=== PATIENT | female | born 1935 | race Caucasian/White ===

== ENCOUNTER 2016-05-16 21:07 | Inpatient (IN) | payer MEDICARE, MEDICAID ==
[~2016-05-16] VITALS: Ht 152.4 cm; Wt 52.6 kg
[~2016-05-16 21:07] MED LIST: AMLO1CAP8 PO; ATOR10TA PO; AZIT250T6 PO; CARB200T PO; CEPH-264 PO; CETI10TA22 PO; ESTR0.62 PO; FEBU40TA PO; FLUT1DIS3 IH; FURO-68 PO; FURO80TA72 PO; HYDR-2672 PO; HYDR-963 PO; HYDR25TA9 PO; LEVO88TA2 PO; LISI-334 PO; POTA20LI PO; PRED50TA PO; PROAIR HFA8.5 GM IH; SERT25TA4 PO; ZOLP10TA4 PO
[2016-05-16] MEDS ORDERED: IV NORMAL SALINE 500ML BAG 500 ML IV ONE (22:30)
[2016-05-16 22:48] LABS: BILIRUBIN,URINE NEGATIVE (NEG); GLUCOSE,URINE NEGATIVE (NEG); NITRITE,URINE NEGATIVE (NEG); PROTEIN,URINE 100 mg/dL (NEG-TRACE); UROBILINOGEN,URINE 0.2 mg/dL (0.2 mg/dL)
[2016-05-16 22:50] LABS: BASO % 0 % (0-3); EOS % 0 % (0-3); HEMATOCRIT 25.4 % (36.0-47.0); HEMOGLOBIN 8.3 g/dL (12.0-15.5); LYMPH # 0.7 x10^3/uL (1.0-4.8); LYMPH % 5 % (24-48); MEAN CORPUSCULAR HEMOGLOBIN 31 pg (25-35); MEAN CORPUSCULAR HGB CONC 33 g/dL (31-37); MEAN CORPUSCULAR VOLUME 93 fL (79-100); MONO % 2 % (0-9); NEUT % 93 % (31-73); PLATELET COUNT 220 x10^3/uL (140-400); RED BLOOD COUNT 2.72 x10^6/uL (3.50-5.40); RED CELL DISTRIBUTION WIDTH 17.2 % (11.5-14.5); WHITE BLOOD COUNT 14.1 x10^3/uL (4.0-11.0)
[2016-05-16 22:59] LABS: INR 1.1 (0.8-1.1); PROTHROMBIN TIME PATIENT 13.3 SEC (11.7-14.0)
[2016-05-16 23:00] LABS: BACTERIA,URINE 0 /HPF (0-FEW); SQUAMOUS EPITHELIAL CELL,UR FEW /LPF; WBC,URINE 20-40 /HPF (0-4)
[2016-05-16 23:08] LABS: CREATININE 1.7 mg/dL (0.6-1.0); GFR 28.8; POTASSIUM 4.8 mmol/L (3.5-5.1)
[2016-05-16 23:15] LABS: ALBUMIN 3.6 g/dL (3.4-5.0); ALBUMIN/GLOBULIN RATIO 1.2 (1.0-1.7); TOTAL BILIRUBIN 0.5 mg/dL (0.2-1.0); TOTAL PROTEIN 6.7 g/dL (6.4-8.2)
--- NOTE | 2016-05-16 23:17 | PHYS DOC ---
Past Medical History Past Medical History: Dementia, Hypertension, Other Additional Past Medical Histor: irr heartbeat, colon CA Past Surgical History: Cholecystectomy, Tonsillectomy, Other Additional Past Surgical Histo: colon resection Alcohol Use: None Drug Use: None Adult General Chief Complaint Chief Complaint: MECHANICAL FALL HPI HPI 80-year-old female who lives at home with her who is the power of deputy prosecuting attorney presents after she fell early this morning and was in the floor for at least a couple of hours. Her home nurse came over and got her into bed. EMS came around noon and she refused transport. The patient's nephew came over later in the day to visit her and noticed that the bruising on her head and right cheek was much worse and she was complaining of a lot of left hip pain. The nephew states she's been progressively weak over the last several weeks and in fact has fallen once previously. Patient denies any loss of consciousness however history is difficult secondary to dementia [] Review of Systems Review of Systems Review of systems is unobtainable secondary to dementia Current Medications Current Medications Current Medications Medications (Trade) Dose Ordered Sig/Romario Start Time Stop Time Status Last Admin Dose Admin Acetaminophen (Tylenol) 650 mg PRN Q4HRS PRN 05/16/16 23:45 05/17/16 23:44 Ceftriaxone Sodium (Rocephin 1gm Ivpb For Omni) 50 ml @ 100 mls/hr 1X ONCE 05/16/16 23:30 05/16/16 23:59 Fentanyl Citrate 25 mcg 25 mcg PRN Q2HR PRN 05/16/16 23:45 05/17/16 23:44 Ondansetron HCl (Zofran) 4 mg PRN Q8HRS PRN 05/16/16 23:45 05/17/16 23:44 Sodium Chloride (Iv Sodium Chloride 0.9% 1000ml Bag) 1,000 ml @ 100 mls/hr Q10H 05/16/16 23:45 05/17/16 23:44 Allergies Allergies Allergies Coded Allergies Type Severity Reaction Last Updated Verified No Known Drug Allergies 06/22/14 No Physical Exam Physical Exam Constitutional: Well developed, well nourished, no acute distress, non-toxic appearance. [] HENT: Normocephalic, atraumatic, bilateral external ears normal, oropharynx moist, no oral exudates, nose normal. [] Eyes: PERRLA, EOMI, conjunctiva normal, no discharge. [] Neck: Normal range of motion, no tenderness, supple, no stridor. [] Cardiovascular:Heart rate regular rhythm, no murmur [] Lungs & Thorax: Bilateral breath sounds clear to auscultation [] Abdomen: Bowel sounds normal, soft, no tenderness, no masses, no pulsatile masses. [] Skin: Warm, dry, no erythema, no rash. [] Back: No tenderness, no CVA tenderness. [] Extremities: No tenderness, no cyanosis, no clubbing, ROM intact, no edema. [] Neurologic: Alert and oriented X 3, normal motor function, normal sensory function, no focal deficits noted. [] Psychologic: Affect normal, judgement normal, mood normal. [] Current Patient Data Vital Signs Vital Signs Date Time Temp Pulse Resp B/P Pulse Ox O2 Delivery O2 Flow Rate FiO2 05/16/16 21:35 98.7 69 16 165/72 95 Room Air 98.7 Lab Values Laboratory Tests Test 05/16/16 21:24 05/16/16 22:43 Urine Collection Type U cath Urine Color Yellow Urine Clarity Clear Urine pH 7.0 Urine Specific Waucoma 1.015 Urine Protein 100mg/dL (NEG-TRACE) Urine Glucose (UA) Negativemg/dL (NEG) Urine Ketones (Stick) Negativemg/dL (NEG) Urine Blood Moderate (NEG) Urine Nitrite Negative (NEG) Urine Bilirubin Negative (NEG) Urine Urobilinogen Dipstick 0.2mg/dL (0.2 mg/dL) Urine Leukocyte Esterase Trace (NEG) Urine RBC 11-20/HPF (0-2) Urine WBC 20-40/HPF (0-4) Urine Squamous Epithelial Cells Few/LPF Urine Bacteria 0/HPF (0-FEW) Urine Hyaline Casts Moderate/HPF Urine Mucus Mod/LPF White Blood Count 14.1x10^3/uL (4.0-11.0) H Red Blood Count 2.72x10^6/uL (3.50-5.40) L Hemoglobin 8.3g/dL (12.0-15.5) L Hematocrit 25.4% (36.0-47.0) L Mean Corpuscular Volume 93fL (79-100) Mean Corpuscular Hemoglobin 31pg (25-35) Mean Corpuscular Hemoglobin Concent 33g/dL (31-37) Red Cell Distribution Width 17.2% (11.5-14.5) H Platelet Count 220x10^3/uL (140-400) Neutrophils (%) (Auto) 93% (31-73) H Lymphocytes (%) (Auto) 5% (24-48) L Monocytes (%) (Auto) 2% (0-9) Eosinophils (%) (Auto) 0% (0-3) Basophils (%) (Auto) 0% (0-3) Neutrophils # (Auto) 13.0x10^3uL (1.8-7.7) H Lymphocytes # (Auto) 0.7x10^3/uL (1.0-4.8) L Monocytes # (Auto) 0.3x10^3/uL (0.0-1.1) Eosinophils # (Auto) 0.0x10^3/uL (0.0-0.7) Basophils # (Auto) 0.0x10^3/uL (0.0-0.2) Platelet Estimate Pending Prothrombin Time 13.3SEC (11.7-14.0) Prothrombin Time INR 1.1 (0.8-1.1) Sodium Level 133mmol/L (136-145) L Potassium Level 4.8mmol/L (3.5-5.1) Chloride Level 100mmol/L (98-107) Carbon Dioxide Level 26mmol/L (21-32) Anion Gap 7 (6-14) Blood Urea Nitrogen 30mg/dL (7-20) H Creatinine 1.7mg/dL (0.6-1.0) H Estimated GFR (Cockcroft-Gault) 28.8 BUN/Creatinine Ratio 18 (6-20) Glucose Level 81mg/dL (70-99) Calcium Level 9.0mg/dL (8.5-10.1) Total Bilirubin 0.5mg/dL (0.2-1.0) Aspartate Amino Transferase (AST) 49U/L (15-37) H Alanine Aminotransferase (ALT) 25U/L (14-59) Alkaline Phosphatase 77U/L (46-116) Creatine Kinase 974U/L (26-192) H Myoglobin 957ng/mL (9-82) H Troponin I Quantitative < 0.017ng/mL (0.000-0.055) Total Protein 6.7g/dL (6.4-8.2) Albumin 3.6g/dL (3.4-5.0) Albumin/Globulin Ratio 1.2 (1.0-1.7) Laboratory Tests 05/16/16 22:43 Laboratory Tests 05/16/16 22:43 EKG EKG [] Radiology/Procedures Radiology/Procedures []PROCEDURE: HEAD AND MAXILLOFACIAL WO CT brain and maxillofacial Indication: Fall with head pain and injury. Axial imaging through the brain and facial bones was performed without contrast. Sagittal and coronal reformations were also performed. PQRS STATEMENT One or more of the following individualized dose reduction techniques were utilized for this study: 1.Automated exposure control. 2.Adjustment of the mA and/orkVaccording to patient size. 3.Use of iterative reconstruction technique. CT brain: The ventricles and sulci are appropriate for the patient's age. No sulcal effacement, midline shift or hemorrhage is detected. The cisterns are patent. Impression: No acute intracranial process is detected. CT maxillofacial: The mandible appears intact. The zygomatic arches are intact. The maxillary sinus culp, nasal bones and orbital culp appear intact. The paranasal sinuses are clear. Impression: No facial bone fracture is detected. Impressions: Hip x-ray: Pelvic fracture Course & Med Decision Making Course & Med Decision Making Pertinent Labs and Imaging studies reviewed. (See chart for details) [ED course: Evaluation reveals a elderly 80-year-old female who appears acutely ill. It was noted that she had a urinary tract infection as well as having an elevated CPK and elevated creatinine. Patient was given IV fluids to help with rhabdomyolysis. She was also treated for her urinary tract infection with IV Rocephin. It was noted on her x-ray that she has a pelvic fracture likely from her recent fall. I spoke with Dr. Medellin who agreed to admit the patient to the hospital. We will consult orthopedic surgery. CRITICAL CARE time was 30 minutes - time exclusive of any procedures performed. Care included medical management, x-ray/lab interpretation, discussions with the patient and their family as well as appropriate medical consultants.] Dragon Disclaimer Dragon Disclaimer This electronic medical record was generated, in whole or in part, using a voice recognition dictation system. Departure Departure Impression: Primary Impression: Rhabdomyolysis Additional Impressions: Fall Pelvic fracture Urinary tract infection Referrals: RAVEN SINGH MD (PCP) Problem Qualifiers Primary Impression: Rhabdomyolysis Rhabdomyolysis type: traumatic Encounter type: initial encounter Qualified Code: T79.6XXA - Traumatic ischemia of muscle, initial encounter Additional Impressions: Fall Encounter type: initial encounter Qualified Code: W19.XXXA - Unspecified fall, initial encounter Pelvic fracture Encounter type: initial encounter Pelvic bone location: pubis Sublocation of pubis: unspecified portion of pubis Fracture type: closed Laterality: left Qualified Code: S32.502A - Unspecified fracture of left pubis, initial encounter for closed fracture Urinary tract infection Urinary tract infection type: site unspecified Hematuria presence: without hematuria Qualified Code: N39.0 - Urinary tract infection, site not specified KAREY DUGAN DO May 16, 2016 23:17
[2016-05-16] MEDS ORDERED: CEFTRIAXONE 1GM IVPB FOR OMNI 50 ML IV ONE (23:30)
[2016-05-16] MEDS ORDERED: FENTANYL PF 100 MCG/2 ML VIAL. IV PRN (23:45)
[2016-05-16] MEDS ORDERED: ACETAMINOPHEN 325 MG TABLET. PO PRN (23:45)
[2016-05-16] MEDS ORDERED: ONDANSETRON PF 4 MG/2 ML VIAL. IV PRN (23:45)
--- NOTE | 2016-05-16 23:51 | RAD ---
CT brain and maxillofacial Indication: Fall with head pain and injury. Axial imaging through the brain and facial bones was performed without contrast. Sagittal and coronal reformations were also performed. PQRS STATEMENT One or more of the following individualized dose reduction techniques were utilized for this study: 1.Automated exposure control. 2.Adjustment of the mA and/orkVaccording to patient size. 3.Use of iterative reconstruction technique. CT brain: The ventricles and sulci are appropriate for the patient's age. No sulcal effacement, midline shift or hemorrhage is detected. The cisterns are patent. Impression: No acute intracranial process is detected. CT maxillofacial: The mandible appears intact. The zygomatic arches are intact. The maxillary sinus culp, nasal bones and orbital culp appear intact. The paranasal sinuses are clear. Impression: No facial bone fracture is detected. Electronically signed by: Jon Hanks MD (May 16, 2016 23:49:14)
[2016-05-17] VITALS (7 sets, daily range): BP systolic 128–151; BP diastolic 47–59
[2016-05-17] MEDS ORDERED: IV NORMAL SALINE 1000ML BAG 1,000 ML IV ONE
--- NOTE | 2016-05-17 00:49 | ACF ---
Admission Forms Criteria MUSCULOSKELETAL DISEASE GRG Clinical Indications for Admission to Inpatient Care (Place 'X' for any and all applicable criteria): Hospital admission is needed for appropriate care of the patient because of ANY ONE of the following: [ ]I. Fracture, dislocation, or other musculoskeletal injury requiring inpatient care(medical) as indicated by ANY ONE of the following(4)(5)(6)(7) [ ]a) Vertebral fracture requiring observation for instability or neurologic compromise (8) [ ]b) Compartment syndrome (proven or cannot be ruled out during observation level of care) (9) [ ]c) Limb-threatening injury [ ]d) Major injury requiring inpatient stabilization such as traction initiation or external fixation before internal fixation or closure of complex or open fracture [ ]e) Major injury requiring inpatient treatment after emergency or observation level care (as appropriate) [ ]f) Severe pain requiring acute inpatient management [ ]II. Newly diagnosed or suspected bone, joint, or orthopedic device infection (e.g., osteomyelitis, septic arthritis) needing ANY ONE of the following(1)(2)(3) [ ]a) IV antibiotics that cannot be initiated in other than inpatient setting (e.g., patient too unstable or home infusion not available) [ ]b) Device removal or replacement [ ]c) Bone or soft tissue debridement [ ]d) Joint drainage (drain placement or repetitive aspirations) [ ]III. Severe rheumatologic disease (e.g., systemic lupus erythematosus, rheumatoid arthritis) with complications or comorbidities (Also use Optimal Recovery Care Criteria or General Recovery Criteria as appropriate on the basis of predominant condition), including ANY ONE of the following(10 )(11)(12)(13) [ ]a) Severe infection (e.g., OFFICE CHAIR ASSEMBLER infection, sepsis) (14) [ ]b) Respiratory complications, including ANY ONE of the following: [ ]i) Pleural effusion with respiratory compromise [ ]ii) Pulmonary hypertension with congestive failure [ ]iii) Respiratory failure [ ]iv) Pulmonary hemorrhage (15) [ ]c) Hematologic disease, including ANY ONE of the following: [ ]i) Coagulopathy with bleeding [ ]ii) Thrombosis with hypercoagulable state [ ]iii) Thrombotic thrombocytopenic purpura [ ]d) Cerebritis with seizures, psychosis, or other severe abnormalities [ ]e) Vertebral destruction with monitoring needed for cervical myelopathy& possible respiratory compromise [ ]f) Exacerbation that requires inpatient treatment (e.g., intravenous immunosuppression) (16) [ ]g) Acute renal failure [ ]IV. Severe vasculitis with complications or comorbidities (Also use Optimal Recovery Care Criteria or General Recovery Criteria as appropriate on the basis of predominant condition), including ANY ONE of the following(11)(12)(17)(18)(19)(20) [ ]a) OFFICE CHAIR ASSEMBLER vasculitis with seizures, psychosis, or other severe abnormalities (22) [ ]b) Renal failure (16) [ ]c) Pulmonary hemorrhage (15) [ ]d) Cerebral infarction [ ]e) Gastrointestinal ischemia [ ]f) Gangrene or threatened amputation [ ]g) Exacerbation that requires inpatient treatment (e.g., intravenous immunosuppression) (19)(21) [ ]V. Severe myopathy as indicated by ANY ONE of the following (28)(29) [ ]a) New onset of airway compromise or inability to swallow [ ]b) Respiratory deterioration with observation needed for impending respiratory failure [ ]c) Exacerbation that requires inpatient treatment (e.g., intravenous immunosuppression) [ ]. Severe gout (crystal arthropathy) as indicated by ANY ONE of the following (23)(24) [ ]a) Severe pain requiring acute inpatient management [ ]b) Exacerbation that requires inpatient treatment (e.g., intravenous treatment) [X]VII.Rhabdomyolysis and ANY ONE of the following (25)(26)(27) [X]a) Acute renal failure [ ]b) Need for intravenous hydration after emergency or observation level care (as appropriate) [ ]c) Inability to maintain oral hydration [ ]d) Change in mental status [ ]e) Electrolyte abnormality that remains after emergency or observation level care (as appropriate) [ ]VIII Post amputation complication, as indicated by ANY ONE of the following [ ]a) Infection [ ]b) Dehiscence [ ]c) Myodesis failure [ ]IX. Severe pain requiring acute inpatient management as indicated by ALL of the following (30)(31)(32) [ ]a) Continuous or frequent (e.g., every 2 to 4 hrs) parenteral analgesics required [A] [ ]b) Rapid improvement expected from treatment or acute intervention ( e.g., surgery, anesthesia procedure[B] [ ]X. Musculoskeletal Disease and ALL of the following: [ ]a) Symptom or finding for which emergency and observation care have failed or are not considered appropriate (Use General Criteria: Observation Care as appropriate) [ ]b) Presence of ANY ONE of the following [ ]i) A General Admission Criteria [ ]ii) A Pediatric General Admission Criteria The original [facility] content created by [facility] has been revised. The portions of the content which have been revised are identified through the use of italic text or in bold, and [facility] has neither reviewed nor approved the modified material. All other unmodified content is copyright [facility]. Please see references footnoted in the original [facility] edition 2016 Admission Criteria Met?: Yes CHAVA MACDONALD May 17, 2016 00:49
[2016-05-17] MEDS: IV NORMAL SALINE 1000ML BAG 1,000 ML IV SCH ×3 (01:23→17:27)
[2016-05-17 01:25] LABS: PLT ESTIMATE ADEQUATE (ADEQUATE)
[2016-05-17 01:26] LABS: ANISOCYTOSIS SLIGHT; MICROCYTOSIS SLIGHT; POLYCHROMASIA SLIGHT
[2016-05-17 06:29] LABS: BASO % 0 % (0-3); EOS % 0 % (0-3); HEMATOCRIT 22.4 % (36.0-47.0); HEMOGLOBIN 7.5 g/dL (12.0-15.5); LYMPH # 0.8 x10^3/uL (1.0-4.8); LYMPH % 7 % (24-48); MEAN CORPUSCULAR HEMOGLOBIN 31 pg (25-35); MEAN CORPUSCULAR HGB CONC 33 g/dL (31-37); MEAN CORPUSCULAR VOLUME 92 fL (79-100); MONO % 3 % (0-9); NEUT % 90 % (31-73); PLATELET COUNT 226 x10^3/uL (140-400); RED BLOOD COUNT 2.45 x10^6/uL (3.50-5.40); RED CELL DISTRIBUTION WIDTH 17.4 % (11.5-14.5); WHITE BLOOD COUNT 10.8 x10^3/uL (4.0-11.0)
[2016-05-17 06:39] LABS: ALBUMIN/GLOBULIN RATIO 1.2 (1.0-1.7); CALCIUM 8.2 mg/dL (8.5-10.1); CREATININE 1.4 mg/dL (0.6-1.0); POTASSIUM 4.1 mmol/L (3.5-5.1); TOTAL BILIRUBIN 0.4 mg/dL (0.2-1.0); TOTAL PROTEIN 5.5 g/dL (6.4-8.2)
--- NOTE | 2016-05-17 07:10 | EKG ---
[facility] [address] [place] [address] Test Date: 2016-05-16 Test Time: 23:39:57 Pat Name: BIANCA PRIETO Department: Room: 408 1 Gender: Female Electrolog Operator: : [id number] Requested By: KAREY DUGAN Order Number: [id number] Reading MD: Sydney Simon Measurements Intervals Walker Rate: 72 P: 0 GA: 254 QRS: -36 QRSD: 84 T: 118 QT: 454 QTc: 499 Interpretive Statements PROBABLE ATRIAL PACED RHYTHM PROLONGED AV DELAY ABNORMAL LEFT AXIS DEVIATION QRS(T) CONTOUR ABNORMALITY CONSISTENT WITH ANTEROSEPTAL INFARCT AGE UNDETERMINED T ABNORMALITY IN ANTERIOR LEADS HIGH LATERAL LEADS INFERIOR LEADS Electronically Signed On 05-18-2016 21:06:45 CDT by Sydney Simon
--- NOTE | 2016-05-17 07:33 | RAD ---
Indication: Pain after fall. Technique: 2 views of the left hip with an AP view the pelvis contains 3 images. No comparison is available. Findings: There are fractures that are likely acute involving the left superior and inferior pubic rami. A definite fracture involving the proximal femur is not identified. There is no dislocation. There are vascular calcifications. Impression: Left superior and inferior pubic rami fractures.
[2016-05-17] MEDS ORDERED: CETIRIZINE HCL 10 MG TABLET PO PRN (13:15)
[2016-05-17] MEDS: ESTROGENS, CONJUGATED 0.3 MG TABLET PO SCH (15:30)
[2016-05-17] MEDS: FEBUXOSTAT 40 MG TABLET PO SCH (15:30)
[2016-05-17] MEDS ORDERED: HYDROCODONE/APAP 10/325 TABLET. PO PRN (16:00)
--- NOTE | 2016-05-17 18:57 | PDOC2 ---
CONSULT Date of Consult Date of Consult DATE: 05/17/16 TIME: 18:51 Reason for Consult Reason for Consult: left pelvic fractures Identification/Chief Complaint Chief Complaint left hip/ pelvis pain Source Source: Chart review History of Present Illness Reason for Visit: The patient is an 80 year old female who fell and sustained left superior and inferior pubic rami fractures. There was no family present in the room and the patient was not able to give me a history at all. She does not complain of pain . Says she normally uses a walker to ambulate. She does have pain with log roll of the left hip. Past Medical History Cardiovascular: CHF, HTN, Other CENTRAL NERVOUS SYSTEM: Other GI: Other Heme/Onc: Cancer Endocrine: Osteoporosis Past Surgical History Past Surgical History: Cholecystectomy, Tonsillectomy, Colon Resection, Other Family History Family History: Family History Unknown Social History ALCOHOL: none Drugs: None Lives: Prison Current Problem List Problem List Problems Medical Problems: (1) Fall Status: Acute (2) Pelvic fracture Status: Acute (3) Rhabdomyolysis Status: Acute (4) Urinary tract infection Status: Acute Current Medications Current Medications Current Medications Sodium Chloride 500 ml @ 0 mls/hr 1X ONCE IV Last administered on 05/16/16 22 :30; Start 05/16/16 at 22:30; Stop 05/16/16 at 22:31; Status DC Ceftriaxone Sodium (Rocephin 1gm Ivpb For Omni) 50 ml @ 100 mls/hr 1X ONCE IV Last administered on 05/17/16 01:28; Start 05/16/16 at 23:30; Stop 05/16/16 at 23:59; Status DC Ondansetron HCl (Zofran) 4 mg PRN Q8HRS PRN IV NAUSEA/VOMITING; Start 05/16/16 at 23:45; Stop 05/17/16 at 23:44 Fentanyl Citrate 25 mcg 25 mcg PRN Q2HR PRN IV PAIN Last administered on 01:23; Start 05/16/16 at 23:45; Stop 05/17/16 at 23:44 Sodium Chloride (Iv Sodium Chloride 0.9% 1000ml Bag) 1,000 ml @ 100 mls/hr Q10H IV Last administered on 05/17/16 17:27; Start 05/16/16 at 23:45; Stop at 23:44 Acetaminophen 650 mg 650 mg PRN Q4HRS PRN PO FEVER; Start 05/16/16 at 23:45; Stop 05/17/16 at 23:44 Sodium Chloride (Iv Sodium Chloride 0.9% 1000ml Bag) 1,000 ml @ 1,000 mls/hr 1X ONCE IV Last administered on 05/17/16 00:00; Start 05/17/16 at 00:00; Stop 05/17/16 at 00:59; Status DC Cetirizine HCl (Zyrtec) 10 mg PRN DAILY PRN PO ALLERGIES; Start 05/17/16 at 13: 15 Estrogens Conjugated (Premarin) 0.3 mg DAILY PO Last administered on 05/17/16 15:30; Start 05/17/16 at 14:00 Febuxostat (Uloric) 40 mg DAILY PO Last administered on 05/17/16 15:30; Start 05/17/16 at 14:00 Acetaminophen/ Hydrocodone Bitart 1 tab 1 tab PRN DAILY PRN PO PAIN; Start at 16:00 Ceftriaxone Sodium/Sodium Chloride (Rocephin/Iv Sodium Chloride 0.9% 50ml) 50 ml @ 100 mls/hr Q24H IV ; Start 05/17/16 at 22:00 Active Scripts Active Keflex (Cephalexin) 500 Mg Capsule 1 Cap PO TID Azithromycin Tablet (Azithromycin) 250 Mg Tablet 1 Pkg PO UD Prednisone 50 Mg Tablet 50 Mg PO DAILY Reported Zyrtec (Cetirizine Hcl) 10 Mg Tablet 1 Tab PO PRN DAILY PRN Hydrocodone-Apap 10-325 (Hydrocodone Bit/Acetaminophen) 1 Each Tablet 1 Tab PO PRN DAILY PRN Premarin (Estrogens, Conjugated) 0.625 Mg Tablet 1 Tab PO DAILY Uloric (Febuxostat) 40 Mg Tablet 1 Tab PO DAILY Allergies Allergies: Coded Allergies: No Known Drug Allergies (Unverified , 06/22/14) ROS Review of System unable to obtain due to patient mental status Physical Exam General: Alert, Cooperative, No acute distress HEENT: Atraumatic, EOMI Lungs: Normal air movement MUSCULOSKELETAL: Other (lle pain with log roll. grossly moves toes. says she can feel her foot when touched. 2+ DP pulse. ) Vitals VITALS Vital Signs Date Time Temp Pulse Resp B/P Pulse Ox O2 Delivery O2 Flow Rate FiO2 05/17/16 15:00 98.2 70 14 138/57 97 Nasal Cannula 2.0 98.2 Labs Labs Laboratory Tests Test 05/16/16 21:24 05/16/16 22:43 05/17/16 05:30 Urine Collection Type U cath Urine Color Yellow Urine Clarity Clear Urine pH 7.0 Urine Specific [place] 1.015 Urine Protein 100mg/dL (NEG-TRACE) Urine Glucose (UA) Negativemg/dL (NEG) Urine Ketones (Stick) Negativemg/dL (NEG) Urine Blood Moderate (NEG) Urine Nitrite Negative (NEG) Urine Bilirubin Negative (NEG) Urine Urobilinogen Dipstick 0.2mg/dL (0.2 mg/dL) Urine Leukocyte Esterase Trace (NEG) Urine RBC 11-20/HPF (0-2) Urine WBC 20-40/HPF (0-4) Urine Squamous Epithelial Cells Few/LPF Urine Bacteria 0/HPF (0-FEW) Urine Hyaline Casts Moderate/HPF Urine Mucus Mod/LPF White Blood Count 14.1x10^3/uL (4.0-11.0) 10.8x10^3/uL (4.0-11.0) Red Blood Count 2.72x10^6/uL (3.50-5.40) 2.45x10^6/uL (3.50-5.40) Hemoglobin 8.3g/dL (12.0-15.5) 7.5g/dL (12.0-15.5) Hematocrit 25.4% (36.0-47.0) 22.4% (36.0-47.0) Mean Corpuscular Volume 93fL (79-100) 92fL (79-100) Mean Corpuscular Hemoglobin 31pg (25-35) 31pg (25-35) Mean Corpuscular Hemoglobin Concent 33g/dL (31-37) 33g/dL (31-37) Red Cell Distribution Width 17.2% (11.5-14.5) 17.4% (11.5-14.5) Platelet Count 220x10^3/uL (140-400) 226x10^3/uL (140-400) Neutrophils (%) (Auto) 93% (31-73) 90% (31-73) Lymphocytes (%) (Auto) 5% (24-48) 7% (24-48) Monocytes (%) (Auto) 2% (0-9) 3% (0-9) Eosinophils (%) (Auto) 0% (0-3) 0% (0-3) Basophils (%) (Auto) 0% (0-3) 0% (0-3) Neutrophils # (Auto) 13.0x10^3uL (1.8-7.7) 9.7x10^3uL (1.8-7.7) Lymphocytes # (Auto) 0.7x10^3/uL (1.0-4.8) 0.8x10^3/uL (1.0-4.8) Monocytes # (Auto) 0.3x10^3/uL (0.0-1.1) 0.3x10^3/uL (0.0-1.1) Eosinophils # (Auto) 0.0x10^3/uL (0.0-0.7) 0.0x10^3/uL (0.0-0.7) Basophils # (Auto) 0.0x10^3/uL (0.0-0.2) 0.0x10^3/uL (0.0-0.2) Segmented Neutrophils % 88% (35-66) Band Neutrophils % 6% (0-9) Lymphocytes % 3% (24-48) Monocytes % 3% (0-10) Platelet Estimate Adequate (ADEQUATE) Giant Platelets Occ Polychromasia Slight Anisocytosis Slight Microcytosis Slight Prothrombin Time 13.3SEC (11.7-14.0) Prothromb Time International Ratio 1.1 (0.8-1.1) Sodium Level 133mmol/L (136-145) 138mmol/L (136-145) Potassium Level 4.8mmol/L (3.5-5.1) 4.1mmol/L (3.5-5.1) Chloride Level 100mmol/L (98-107) 103mmol/L (98-107) Carbon Dioxide Level 26mmol/L (21-32) 22mmol/L (21-32) Anion Gap 7 (6-14) 13 (6-14) Blood Urea Nitrogen 30mg/dL (7-20) 28mg/dL (7-20) Creatinine 1.7mg/dL (0.6-1.0) 1.4mg/dL (0.6-1.0) Estimated GFR (Cockcroft-Gault) 28.8 36.0 BUN/Creatinine Ratio 18 (6-20) 20 (6-20) Glucose Level 81mg/dL (70-99) 61mg/dL (70-99) Calcium Level 9.0mg/dL (8.5-10.1) 8.2mg/dL (8.5-10.1) Total Bilirubin 0.5mg/dL (0.2-1.0) 0.4mg/dL (0.2-1.0) Aspartate Amino Transf (AST/SGOT) 49U/L (15-37) 45U/L (15-37) Alanine Aminotransferase (ALT/SGPT) 25U/L (14-59) 21U/L (14-59) Alkaline Phosphatase 77U/L (46-116) 70U/L (46-116) Creatine Kinase 974U/L (26-192) Myoglobin 957ng/mL (9-82) Troponin I Quantitative < 0.017ng/mL (0.000-0.055) Total Protein 6.7g/dL (6.4-8.2) 5.5g/dL (6.4-8.2) Albumin 3.6g/dL (3.4-5.0) 3.0g/dL (3.4-5.0) Albumin/Globulin Ratio 1.2 (1.0-1.7) 1.2 (1.0-1.7) Laboratory Tests Test 05/16/16 21:24 05/16/16 22:43 05/17/16 05:30 Urine Collection Type U cath Urine Color Yellow Urine Clarity Clear Urine pH 7.0 Urine Specific [place] 1.015 Urine Protein 100mg/dL (NEG-TRACE) Urine Glucose (UA) Negativemg/dL (NEG) Urine Ketones (Stick) Negativemg/dL (NEG) Urine Blood Moderate (NEG) Urine Nitrite Negative (NEG) Urine Bilirubin Negative (NEG) Urine Urobilinogen Dipstick 0.2mg/dL (0.2 mg/dL) Urine Leukocyte Esterase Trace (NEG) Urine RBC 11-20/HPF (0-2) Urine WBC 20-40/HPF (0-4) Urine Squamous Epithelial Cells Few/LPF Urine Bacteria 0/HPF (0-FEW) Urine Hyaline Casts Moderate/HPF Urine Mucus Mod/LPF White Blood Count 14.1x10^3/uL (4.0-11.0) 10.8x10^3/uL (4.0-11.0) Red Blood Count 2.72x10^6/uL (3.50-5.40) 2.45x10^6/uL (3.50-5.40) Hemoglobin 8.3g/dL (12.0-15.5) 7.5g/dL (12.0-15.5) Hematocrit 25.4% (36.0-47.0) 22.4% (36.0-47.0) Mean Corpuscular Volume 93fL (79-100) 92fL (79-100) Mean Corpuscular Hemoglobin 31pg (25-35) 31pg (25-35) Mean Corpuscular Hemoglobin Concent 33g/dL (31-37) 33g/dL (31-37) Red Cell Distribution Width 17.2% (11.5-14.5) 17.4% (11.5-14.5) Platelet Count 220x10^3/uL (140-400) 226x10^3/uL (140-400) Neutrophils (%) (Auto) 93% (31-73) 90% (31-73) Lymphocytes (%) (Auto) 5% (24-48) 7% (24-48) Monocytes (%) (Auto) 2% (0-9) 3% (0-9) Eosinophils (%) (Auto) 0% (0-3) 0% (0-3) Basophils (%) (Auto) 0% (0-3) 0% (0-3) Neutrophils # (Auto) 13.0x10^3uL (1.8-7.7) 9.7x10^3uL (1.8-7.7) Lymphocytes # (Auto) 0.7x10^3/uL (1.0-4.8) 0.8x10^3/uL (1.0-4.8) Monocytes # (Auto) 0.3x10^3/uL (0.0-1.1) 0.3x10^3/uL (0.0-1.1) Eosinophils # (Auto) 0.0x10^3/uL (0.0-0.7) 0.0x10^3/uL (0.0-0.7) Basophils # (Auto) 0.0x10^3/uL (0.0-0.2) 0.0x10^3/uL (0.0-0.2) Segmented Neutrophils % 88% (35-66) Band Neutrophils % 6% (0-9) Lymphocytes % 3% (24-48) Monocytes % 3% (0-10) Platelet Estimate Adequate (ADEQUATE) Giant Platelets Occ Polychromasia Slight Anisocytosis Slight Microcytosis Slight Prothrombin Time 13.3SEC (11.7-14.0) Prothromb Time International Ratio 1.1 (0.8-1.1) Sodium Level 133mmol/L (136-145) 138mmol/L (136-145) Potassium Level 4.8mmol/L (3.5-5.1) 4.1mmol/L (3.5-5.1) Chloride Level 100mmol/L (98-107) 103mmol/L (98-107) Carbon Dioxide Level 26mmol/L (21-32) 22mmol/L (21-32) Anion Gap 7 (6-14) 13 (6-14) Blood Urea Nitrogen 30mg/dL (7-20) 28mg/dL (7-20) Creatinine 1.7mg/dL (0.6-1.0) 1.4mg/dL (0.6-1.0) Estimated GFR (Cockcroft-Gault) 28.8 36.0 BUN/Creatinine Ratio 18 (6-20) 20 (6-20) Glucose Level 81mg/dL (70-99) 61mg/dL (70-99) Calcium Level 9.0mg/dL (8.5-10.1) 8.2mg/dL (8.5-10.1) Total Bilirubin 0.5mg/dL (0.2-1.0) 0.4mg/dL (0.2-1.0) Aspartate Amino Transf (AST/SGOT) 49U/L (15-37) 45U/L (15-37) Alanine Aminotransferase (ALT/SGPT) 25U/L (14-59) 21U/L (14-59) Alkaline Phosphatase 77U/L (46-116) 70U/L (46-116) Creatine Kinase 974U/L (26-192) Myoglobin 957ng/mL (9-82) Troponin I Quantitative < 0.017ng/mL (0.000-0.055) Total Protein 6.7g/dL (6.4-8.2) 5.5g/dL (6.4-8.2) Albumin 3.6g/dL (3.4-5.0) 3.0g/dL (3.4-5.0) Albumin/Globulin Ratio 1.2 (1.0-1.7) 1.2 (1.0-1.7) Images Images Xrays of her pelvis and hip reveal a superior and inferior pubic ramus fracture , no acute hip fracture. Assessment/Plan Assessment/Plan The patient is a 80 year old female s/p fall with left superior and inferior pubic rami fractures. She does not report any left hip pain. Pain with log roll, usually uses a walker to ambulate. Ok to be wbat with PT. will need post mobilization xrays after being up with PT. dvt ppx pain control. I would check her vitamin D level and supplement as necessary. Can follow up in my office in 3 weeks for new xrays. NIDHI HOBBS MD May 17, 2016 18:57
[2016-05-17] MEDS ORDERED: FLUT1DIS3 IH (19:21)
[2016-05-17] MEDS: BUDESONIDE 0.5 MG/2 ML NEBU NEB SCH (20:00)
[2016-05-17] MEDS: ALBUTEROL SULFATE 2.5 MG/3 ML NEBU. NEB SCH (20:00)
[2016-05-18] VITALS (11 sets, daily range): BP systolic 112–139; BP diastolic 40–70
[2016-05-18] MEDS: CEFTRIAXONE SODIUM 1 GM in IV NORMAL SALINE 50ML 50 ML IV SCH ×2 (00:31→21:55)
[2016-05-18 04:38] LABS: BASO % 0 % (0-3); EOS % 1 % (0-3); LYMPH # 0.8 x10^3/uL (1.0-4.8); LYMPH % 8 % (24-48); MEAN CORPUSCULAR HEMOGLOBIN 31 pg (25-35); MEAN CORPUSCULAR HGB CONC 33 g/dL (31-37); MEAN CORPUSCULAR VOLUME 94 fL (79-100); MONO % 3 % (0-9); NEUT % 88 % (31-73); PLATELET COUNT 224 x10^3/uL (140-400); RED CELL DISTRIBUTION WIDTH 17.3 % (11.5-14.5); WHITE BLOOD COUNT 8.9 x10^3/uL (4.0-11.0)
[2016-05-18 04:42] LABS: HEMOGLOBIN 6.5 g/dL (12.0-15.5)
[2016-05-18 04:43] LABS: HEMATOCRIT 19.7 % (36.0-47.0)
[2016-05-18 04:58] LABS: % SAT IRON 22 % (15-34); IRON,SERUM 32 ug/dL (50-170)
[2016-05-18 05:03] LABS: CALCIUM 7.6 mg/dL (8.5-10.1); CREATININE 1.2 mg/dL (0.6-1.0); POTASSIUM 3.3 mmol/L (3.5-5.1)
[2016-05-18] MEDS: ALBUTEROL SULFATE 2.5 MG/3 ML NEBU. NEB SCH ×4 (08:08→19:30)
[2016-05-18] MEDS: BUDESONIDE 0.5 MG/2 ML NEBU NEB SCH ×2 (08:08→19:30)
[2016-05-18] MEDS ORDERED: NON FORMULARY ITEM (Fluticasone/Salmeterol (Advair 250-50 Diskus) 1 PUFF) IH SCH (09:00)
--- NOTE | 2016-05-18 09:31 | HP ---
ADMIT DATE: 05/17/2016 CHIEF COMPLAINT: Hip fracture, status post fall. HISTORY OF PRESENT ILLNESS: The patient is an 80-year-old woman who lives with her at home. She relates that she blacked out earlier this morning and fell to the floor. Apparently, she was down for quite a bit, although she recollects woken up with people around her. Home health nurse came by and got her into bed. EMS was called, but the patient declined to go to the hospital. However, in the afternoon, nephew came by and noted significant bruising in her face as well as complaints of left hip pain and urged the patient to come to the hospital. In the Emergency Room, she was noted to have contusions over her right orthodoxy and maxillary prominence. Pelvic x-rays showed left superior and inferior pubic rami fractures. CT of head and face shows no fractures. PAST MEDICAL HISTORY: Please note this was obtained from the chart as the patient has massive memory deficits. Dementia, hypertension, atrial fibrillation, history of colon cancer, status post resection, status post cholecystectomy and tonsillectomy. FAMILY HISTORY: Unavailable. SOCIAL HISTORY: No toxic habits. Lives with her . ALLERGIES: No known drug allergies. MEDICATIONS: MAR reconciled with home medications. REVIEW OF SYSTEMS: The patient relates that she currently has no pain. She is somewhat uncomfortable, lying in bed. Denies any other problems, although caveat with memory issues and perception. PHYSICAL EXAMINATION: VITAL SIGNS: From today show a blood pressure of 128/53, heart rate of 70, respiratory rate at 14, she is afebrile. GENERAL: This is a well-nourished, frail appearing 80-year-old woman, awake, alert, in no acute distress, significant memory issues short as well as long-term. LUNGS: Clear to auscultation bilaterally. HEART: Regular rate and rhythm. ABDOMEN: Has positive bowel sounds, soft, nontender. EXTREMITIES: Show no edema. SKIN: Warm, soft and dry, bruising noted over the right orthodoxy and below the zygomatic arch as well as on her right lateral hip. IMAGING: Pelvis x-rays with left superior and inferior pubic rami fractures. CT of the head and facial bones without any fractures noted. ASSESSMENT AND PLAN: The patient is an 80-year-old woman with dementia, who presented with a fall of unknown etiology, possibly a mechanical, although contrary to her story to the ER, she is now convinced that she blacked out. In the Emergency Room, she had been found with UTI, which may have caused weakness and led to the fall. She will be treated for this. Orthopedic Surgery has been consulted. No surgical intervention indicated at this time. Her CK was found to be elevated, possibly secondary to rhabdomyolysis or muscle injury from fall. I will monitor. Creatinine likewise slightly elevated indicating some acute possibly on chronic renal insufficiency. We will monitor with careful IV hydration. Although, the patient has hypertension and atrial fibrillation listed on her past medical history, she actually is not on any medications for this. We will have to try and verify home medication list. Prophylaxis will be instituted with heparin. MALIK KEENAN MD DR: TORY/nts JOB#: [id number] / [id number] ROBERTO
[2016-05-18] MEDS: ESTROGENS, CONJUGATED 0.3 MG TABLET PO SCH (11:11)
[2016-05-18] MEDS: FEBUXOSTAT 40 MG TABLET PO SCH (11:11)
[2016-05-18] MEDS: HYDROCODONE/APAP 5/325MG TABLET. PO PRN ×2 (15:14→21:55)
--- NOTE | 2016-05-18 16:53 | PDOC ---
PROGRESS NOTES Chief Complaint Chief Complaint s/p fall with pubic rami fx ASSESSMENT AND PLAN: 1. Pubic rami fx: ?mechanical fall. appreciate Dr Mora's input. rpt Xrays post ambulation. treat symptomatically 2. Anemia: acute on chronic: suspect bleed, prob traumatic. transfuse PRBC x1, rpt labs pending. anemia labs significant for severe inflammatory anemia and folate deficiency. replete folate, low dose PO iron 3. L abd pain: new. ?bleed. obtain CT JIHAN (PO con only) 4. Pain control: add lortab q6h PRn 5. UTI: suspected by UA, on empiric Abx. cult NGTD day#1 6. Rabdomyolysis: rpt CK pending 7. MICHAELA: improving with IVF 8. HTN: n well controlled w/o meds. 9. Afib by hx: curerntly NSR 10. Prophylaxis: lovenox Vitals Vitals Vital Signs Date Time Temp Pulse Resp B/P Pulse Ox O2 Delivery O2 Flow Rate FiO2 05/18/16 15:51 97 Nasal Cannula 2.0 05/18/16 15:16 98.6 70 20 139/53 98.6 Physical Exam General: Alert, Cooperative, No acute distress Heart: Regular rate Lungs: Clear Abdomen: Normal bowel sounds, No tenderness Extremities: No edema Skin: No rashes Labs LABS Laboratory Tests Test 05/18/16 03:25 White Blood Count 8.9x10^3/uL (4.0-11.0) Red Blood Count 2.10x10^6/uL (3.50-5.40) Hemoglobin 6.5g/dL (12.0-15.5) Hematocrit 19.7% (36.0-47.0) Mean Corpuscular Volume 94fL (79-100) Mean Corpuscular Hemoglobin 31pg (25-35) Mean Corpuscular Hemoglobin Concent 33g/dL (31-37) Red Cell Distribution Width 17.3% (11.5-14.5) Platelet Count 224x10^3/uL (140-400) Neutrophils (%) (Auto) 88% (31-73) Lymphocytes (%) (Auto) 8% (24-48) Monocytes (%) (Auto) 3% (0-9) Eosinophils (%) (Auto) 1% (0-3) Basophils (%) (Auto) 0% (0-3) Neutrophils # (Auto) 7.8x10^3uL (1.8-7.7) Lymphocytes # (Auto) 0.8x10^3/uL (1.0-4.8) Monocytes # (Auto) 0.2x10^3/uL (0.0-1.1) Eosinophils # (Auto) 0.1x10^3/uL (0.0-0.7) Basophils # (Auto) 0.0x10^3/uL (0.0-0.2) Reticulocyte Count (auto) 1.0% (0.5-2.5) Sodium Level 141mmol/L (136-145) Potassium Level 3.3mmol/L (3.5-5.1) Chloride Level 107mmol/L (98-107) Carbon Dioxide Level 24mmol/L (21-32) Anion Gap 10 (6-14) Blood Urea Nitrogen 24mg/dL (7-20) Creatinine 1.2mg/dL (0.6-1.0) Estimated GFR (Cockcroft-Gault) 43.0 Glucose Level 79mg/dL (70-99) Calcium Level 7.6mg/dL (8.5-10.1) Iron Level 32ug/dL (50-170) Total Iron Binding Capacity 143ug/dL (250-450) Iron Saturation 22% (15-34) Ferritin 458ng/mL (8-252) Serum Folate 0.55ng/ml (3.2-20.0) Review of Systems Review of Systems sl confused. uncomfortable Comment Review of Relevant MALIK KEENAN MD May 18, 2016 16:53
--- NOTE | 2016-05-18 17:49 | RAD ---
PROCEDURE CT abdomen pelvis without contrast HISTORY Abdominal pain TECHNIQUE Noncontrast helical CT scanning of the abdomen and pelvis was performed. Without GI contrast, the sensitivity to detect GI tract pathology is decreased. Without IV contrast, the sensitivity to detect organ pathology is decreased. COMPARISON FINDINGS There is tiny pleural effusions with adjacent infiltrates. This bold rib fractures bilaterally. The liver is homogeneous in appearance on this noncontrast study and is normal in size. The spleen is homogeneous appearance on this noncontrast study and is normal in size. The pancreas is homogeneous appearance on this noncontrast study and is not enlarged. The gallbladder appears normal and no radiopaque gallstones are seen. No extrahepatic biliary ductal dilatation is seen. No adrenal masses are seen. There is a calcification in the right renal parenchyma on the right. Perinephric stranding is likely chronic. Urinary bladder is collapsed around a Latif not well evaluated. No focal aneurysmal dilatation of the abdominal aorta is seen. No enlarged abdominal or pelvic lymphadenopathy is seen. No free intraperitoneal fluid or free intraperitoneal air is seen. No obstructive bowel pattern or inflammatory changes are seen. The lung bases are clear. No osteolytic process is seen. There is an acute mildly comminuted fracture the inferior pubic ramus on the left and there is a fracture of the inferior and superior pubic ramus on left near the pubic symphysis. There is fractures through the sacral ala on the left. There is mild hematoma anterior to the sacrum and there is hematoma medial to the left hip IMPRESSION 1. Acute traumatic fractures of the inferior and superior superior pubic rami on the left and a fracture of the left sacrum. 2. Small hematoma anterior the sacrum and medial to the left hip. 3. Tiny pleural effusions with adjacent infiltrates in the lung bases. Electronically signed by: Wilian Porter MD (May 18, 2016 17:47:09)
[2016-05-18] MEDS: FOLIC ACID 1 MG TABLET PO SCH (17:54)
[2016-05-18 18:41] LABS: BASO % 0 % (0-3); EOS % 1 % (0-3); HEMATOCRIT 27.4 % (36.0-47.0); LYMPH # 0.5 x10^3/uL (1.0-4.8); LYMPH % 5 % (24-48); MEAN CORPUSCULAR HEMOGLOBIN 30 pg (25-35); MEAN CORPUSCULAR HGB CONC 33 g/dL (31-37); MEAN CORPUSCULAR VOLUME 92 fL (79-100); MONO % 3 % (0-9); NEUT % 91 % (31-73); PLATELET COUNT 218 x10^3/uL (140-400); RED BLOOD COUNT 2.96 x10^6/uL (3.50-5.40); RED CELL DISTRIBUTION WIDTH 17.2 % (11.5-14.5); WHITE BLOOD COUNT 9.7 x10^3/uL (4.0-11.0)
[2016-05-18] MEDS: HEPARIN PF for SUB-Q USE 5,000 UNIT/0.5 ML VIAL. SQ SCH (20:42)
[2016-05-18] MEDS: FERROUS SULFATE 325 MG TABLET PO SCH (21:54)
[2016-05-19] MEDS: HYDROCODONE/APAP 5/325MG TABLET. PO PRN ×3 (03:15→22:14)
[2016-05-19 03:33] VITALS: BP 151/65
[2016-05-19 07:00] VITALS: BP 125/61
[2016-05-19] MEDS: FEBUXOSTAT 40 MG TABLET PO SCH (08:17)
[2016-05-19] MEDS: ESTROGENS, CONJUGATED 0.3 MG TABLET PO SCH (08:19)
[2016-05-19] MEDS: FOLIC ACID 1 MG TABLET PO SCH (08:19)
[2016-05-19] MEDS: HEPARIN PF for SUB-Q USE 5,000 UNIT/0.5 ML VIAL. SQ SCH ×2 (08:24→22:14)
[2016-05-19] MEDS: BUDESONIDE 0.5 MG/2 ML NEBU NEB SCH ×2 (08:30→19:31)
[2016-05-19] MEDS: ALBUTEROL SULFATE 2.5 MG/3 ML NEBU. NEB SCH ×4 (08:30→19:31)
[2016-05-19 11:00] VITALS: BP 120/51
--- NOTE | 2016-05-19 14:00 | PDOC ---
PROGRESS NOTES Subjective Subjective Problems overnight: Objective Vital Signs Vital Signs Date Time Temp Pulse Resp B/P Pulse Ox O2 Delivery O2 Flow Rate FiO2 05/19/16 11:00 98.0 70 18 120/51 96 Nasal Cannula 2.0 98.0 Labs Laboratory Tests Test 05/18/16 03:25 05/18/16 18:10 White Blood Count 8.9x10^3/uL (4.0-11.0) 9.7x10^3/uL (4.0-11.0) Red Blood Count 2.10x10^6/uL (3.50-5.40) 2.96x10^6/uL (3.50-5.40) Hemoglobin 6.5g/dL (12.0-15.5) 9.0g/dL (12.0-15.5) Hematocrit 19.7% (36.0-47.0) 27.4% (36.0-47.0) Mean Corpuscular Volume 94fL (79-100) 92fL (79-100) Mean Corpuscular Hemoglobin 31pg (25-35) 30pg (25-35) Mean Corpuscular Hemoglobin Concent 33g/dL (31-37) 33g/dL (31-37) Red Cell Distribution Width 17.3% (11.5-14.5) 17.2% (11.5-14.5) Platelet Count 224x10^3/uL (140-400) 218x10^3/uL (140-400) Neutrophils (%) (Auto) 88% (31-73) 91% (31-73) Lymphocytes (%) (Auto) 8% (24-48) 5% (24-48) Monocytes (%) (Auto) 3% (0-9) 3% (0-9) Eosinophils (%) (Auto) 1% (0-3) 1% (0-3) Basophils (%) (Auto) 0% (0-3) 0% (0-3) Neutrophils # (Auto) 7.8x10^3uL (1.8-7.7) 8.8x10^3uL (1.8-7.7) Lymphocytes # (Auto) 0.8x10^3/uL (1.0-4.8) 0.5x10^3/uL (1.0-4.8) Monocytes # (Auto) 0.2x10^3/uL (0.0-1.1) 0.3x10^3/uL (0.0-1.1) Eosinophils # (Auto) 0.1x10^3/uL (0.0-0.7) 0.1x10^3/uL (0.0-0.7) Basophils # (Auto) 0.0x10^3/uL (0.0-0.2) 0.0x10^3/uL (0.0-0.2) Reticulocyte Count (auto) 1.0% (0.5-2.5) Sodium Level 141mmol/L (136-145) Potassium Level 3.3mmol/L (3.5-5.1) Chloride Level 107mmol/L (98-107) Carbon Dioxide Level 24mmol/L (21-32) Anion Gap 10 (6-14) Blood Urea Nitrogen 24mg/dL (7-20) Creatinine 1.2mg/dL (0.6-1.0) Estimated GFR (Cockcroft-Gault) 43.0 Glucose Level 79mg/dL (70-99) Calcium Level 7.6mg/dL (8.5-10.1) Iron Level 32ug/dL (50-170) Total Iron Binding Capacity 143ug/dL (250-450) Iron Saturation 22% (15-34) Ferritin 458ng/mL (8-252) Serum Folate 0.55ng/ml (3.2-20.0) Creatine Kinase 379U/L (26-192) Vitamin B12 Level 335pg/mL (247-911) Laboratory Tests Test 05/18/16 18:10 White Blood Count 9.7x10^3/uL (4.0-11.0) Red Blood Count 2.96x10^6/uL (3.50-5.40) Hemoglobin 9.0g/dL (12.0-15.5) Hematocrit 27.4% (36.0-47.0) Mean Corpuscular Volume 92fL (79-100) Mean Corpuscular Hemoglobin 30pg (25-35) Mean Corpuscular Hemoglobin Concent 33g/dL (31-37) Red Cell Distribution Width 17.2% (11.5-14.5) Platelet Count 218x10^3/uL (140-400) Neutrophils (%) (Auto) 91% (31-73) Lymphocytes (%) (Auto) 5% (24-48) Monocytes (%) (Auto) 3% (0-9) Eosinophils (%) (Auto) 1% (0-3) Basophils (%) (Auto) 0% (0-3) Neutrophils # (Auto) 8.8x10^3uL (1.8-7.7) Lymphocytes # (Auto) 0.5x10^3/uL (1.0-4.8) Monocytes # (Auto) 0.3x10^3/uL (0.0-1.1) Eosinophils # (Auto) 0.1x10^3/uL (0.0-0.7) Basophils # (Auto) 0.0x10^3/uL (0.0-0.2) Creatine Kinase 379U/L (26-192) Vitamin B12 Level 335pg/mL (247-911) Assessment Assessment POD# [], S/P [] Problems: Plan Plan of Care Viewed pelvis xray, unclear if this is postmobilization or not. However, fractures appear stable. Ok to be wbat with a walker. follow up 2-3 weeks in my office for repeat xrays . NIDHI HOBBS MD May 19, 2016 14:00
--- NOTE | 2016-05-19 14:53 | PDOC ---
PROGRESS NOTES Chief Complaint Chief Complaint s/p fall with pubic rami fx ASSESSMENT AND PLAN: 1. Pubic rami fx: ?mechanical fall. appreciate Dr Mora's input. rpt Xrays post ambulation w/o clear displacement. treat symptomatically. O/P Xray F/U 2. Anemia: acute on chronic: suspect bleed, prob traumatic. s/p PRBc x1 with excessive improvement in H/H (not clear which Hgb was erroneous). monitor. anemia labs also significant for severe inflammatory anemia and folate deficiency. replete folate, low dose PO iron 3. L abd pain: new. CT with small hematoma ant to sacrum/medial to L hip. treat symptomatically 4. Pain control: add lortab q6h PRN 5. UTI: suspected by UA, not confirmed by culture. stop Abx 6. 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 MICHAELA: improving with IVF. suspect close to or at baseline (mild CKD 8. HTN: n well controlled w/o meds. 9. Afib by hx: currently NSR 10. Prophylaxis: lovenox 11. Dispo: to [facility]F in AM Vitals Vitals Vital Signs Date Time Temp Pulse Resp B/P Pulse Ox O2 Delivery O2 Flow Rate FiO2 05/19/16 14:43 18 Nasal Cannula 2.0 05/19/16 11:00 98.0 70 120/51 96 98.0 Physical Exam General: Alert, Cooperative, No acute distress Heart: Regular rate Lungs: Clear Abdomen: Normal bowel sounds, No tenderness Extremities: No edema Skin: No rashes Labs LABS Laboratory Tests Test 05/18/16 18:10 White Blood Count 9.7x10^3/uL (4.0-11.0) Red Blood Count 2.96x10^6/uL (3.50-5.40) Hemoglobin 9.0g/dL (12.0-15.5) Hematocrit 27.4% (36.0-47.0) Mean Corpuscular Volume 92fL (79-100) Mean Corpuscular Hemoglobin 30pg (25-35) Mean Corpuscular Hemoglobin Concent 33g/dL (31-37) Red Cell Distribution Width 17.2% (11.5-14.5) Platelet Count 218x10^3/uL (140-400) Neutrophils (%) (Auto) 91% (31-73) Lymphocytes (%) (Auto) 5% (24-48) Monocytes (%) (Auto) 3% (0-9) Eosinophils (%) (Auto) 1% (0-3) Basophils (%) (Auto) 0% (0-3) Neutrophils # (Auto) 8.8x10^3uL (1.8-7.7) Lymphocytes # (Auto) 0.5x10^3/uL (1.0-4.8) Monocytes # (Auto) 0.3x10^3/uL (0.0-1.1) Eosinophils # (Auto) 0.1x10^3/uL (0.0-0.7) Basophils # (Auto) 0.0x10^3/uL (0.0-0.2) Creatine Kinase 379U/L (26-192) Vitamin B12 Level 335pg/mL (247-911) Review of Systems Review of Systems feels better, pain controlled. no SOB MALIK KEENAN MD May 19, 2016 14:52
[2016-05-19 15:00] VITALS: BP 138/58
[2016-05-19 19:00] VITALS: BP 144/63
[2016-05-19] MEDS: CEFTRIAXONE SODIUM 1 GM in IV NORMAL SALINE 50ML 50 ML IV SCH ×2 (22:00→22:03)
[2016-05-19] MEDS: FERROUS SULFATE 325 MG TABLET PO SCH (22:02)
[2016-05-19] MEDS: CIPROFLOXACIN HCL 250 MG TABLET PO SCH (22:38)
[2016-05-19 23:00] VITALS: BP 151/70
[2016-05-20 03:22] VITALS: BP 151/70
[2016-05-20 07:00] VITALS: BP 156/86
[2016-05-20] MEDS: ALBUTEROL SULFATE 2.5 MG/3 ML NEBU. NEB SCH ×2 (07:34→12:56)
[2016-05-20] MEDS: BUDESONIDE 0.5 MG/2 ML NEBU NEB SCH (07:34)
[2016-05-20] MEDS: ESTROGENS, CONJUGATED 0.3 MG TABLET PO SCH (08:14)
[2016-05-20] MEDS: CIPROFLOXACIN HCL 250 MG TABLET PO SCH (08:14)
[2016-05-20] MEDS: HYDROCODONE/APAP 5/325MG TABLET. PO PRN ×2 (08:14→15:10)
[2016-05-20] MEDS: FEBUXOSTAT 40 MG TABLET PO SCH (08:14)
[2016-05-20] MEDS: FOLIC ACID 1 MG TABLET PO SCH (08:15)
[2016-05-20] MEDS: HEPARIN PF for SUB-Q USE 5,000 UNIT/0.5 ML VIAL. SQ SCH (08:22)
[2016-05-20 11:00] VITALS: BP 135/65
[2016-05-20] MEDS ORDERED: HYDR-2666 PO (11:35)
[2016-05-20] MEDS ORDERED: FERR325T72 PO (11:35)
[2016-05-20] MEDS ORDERED: FOLI1TAB16 PO (11:35)
--- NOTE | 2016-05-21 23:26 | DS ---
DATE OF DISCHARGE: 05/20/2016 CHIEF COMPLAINT: Status post mechanical fall with pubic rami fractures. HOSPITAL COURSE: The patient is an 80-year-old woman who had a syncopal episode versus mechanical fall at home with resultant pubic rami fractures. She was seen by Dr. Mora and with recommendations for nonsurgical treatment. Follow up x-ray after mobilization did not reveal any significant displacement and the patient was therefore deemed stable for discharge to rehab. DISCHARGE DATE: 05/20/2016. PHYSICAL EXAMINATION: VITAL SIGNS: Stable. GENERAL: This is a frail, but well-nourished 80-year-old woman, alert and oriented, in no acute distress. LUNGS: Clear. HEART: Regular rate and rhythm. ABDOMEN: Has positive bowel sounds, soft, nontender. Right lateral bruising on her right hip . EXTREMITIES: Show no edema. DISCHARGE DISPOSITION: To SNF. DISCHARGE CONDITION: Improved. DISCHARGE DIAGNOSIS: Pubic rami fractures. DISCHARGE MEDICATIONS: Please refer to MAR. DISCHARGE INSTRUCTIONS: The patient will follow up with Dr. Mora in 2 weeks. She will see her PCP in 1-2 weeks. Greater than 30 minutes were spent in arranging discharge. MALIK KEENAN MD DR: UR/nts JOB#: [id number] / [id number] RAVEN Hayes MD MTDD
== END 2016-05-20 15:20 | DRG 535 ==
LOC: ER 21:07 → 4 NORTH 23:40
PROVIDERS: ADMIT Internal Medicine; ATTEND Internal Medicine
PROC: 30233N1 Transfusion of Nonautologous Red Blood Cells into Peripheral Vein, Percutaneous Approach (ICD-10-PCS; principal; 2016-05-18)
DX: S32.592A Other specified fracture of left pubis, initial encounter for closed fracture (principal); N17.0 Acute kidney failure with tubular necrosis; M62.82 Rhabdomyolysis; N39.0 Urinary tract infection, site not specified; D64.9 Anemia, unspecified; E53.8 Deficiency of other specified B group vitamins; F03.90 Unspecified dementia, unspecified severity, without behavioral disturbance, psychotic disturbance, mood disturbance, and anxiety; I48.91 Unspecified atrial fibrillation; I11.0 Hypertensive heart disease with heart failure; I50.9 Heart failure, unspecified; M81.0 Age-related osteoporosis without current pathological fracture; W18.30XA Fall on same level, unspecified, initial encounter; Y92.009 Unspecified place in unspecified non-institutional (private) residence as the place of occurrence of the external cause; Z85.038 Personal history of other malignant neoplasm of large intestine; Z90.49 Acquired absence of other specified parts of digestive tract
CPT/HCPCS: 36415; 70450; 70486; 73502; 74176; 80048; 80053; 81001; 82550; 82607; 82608; 82728; 82746; 83540; 83550; 83874; 84484; 85007; 85027; 85045; 85610; 86850; 86900; 86901; 86920; 87086; 93005; 94250; 94640; 94760; 96360; 96361; J0690; J0696; J3010; J7030; J7040; P9016; 97116; 97530; 97535; 99291-25

== ENCOUNTER → 2016-07-11 | Outpatient (CLI) | payer MEDICARE, MEDICAID ==
[~2016-07-11] MED LIST changes: +ACET500T33 PO; +ACET500T68 PO; +ALBU0.63 NEB; +AMLO10TA4 PO; +BUDE0.5A NEB; +CHOL100014 PO; +DONE5TAB56 PO; +ENOX30DI SQ; +FERR325T72 PO; +FOLI1TAB16 PO; +FURO-69 PO; -HYDR-2672 PO; +HYDR-2758 PO; +HYDR-2766 PO; +HYDR5TAB PO; +LIDO700A27 TP; +LIDO700A4 TP; +METO25TA4 PO; +POTA10TA PO; +POTA10TA5 PO; -POTA20LI PO; +POTA20LI27 PO; +POTA20TA82 PO; +TRAM50TA PO
--- NOTE | 2016-07-11 10:53 | RAD ---
Indication: Weight gain. Time of exam 10:19 AM Correlation is made with prior study from 06/23/2016. Heart size is stable. Cardiac pacer remains in place. No infiltrate or failure is seen. No effusion or pneumothorax is detected. Old left-sided and right-sided rib fractures are again noted. Impression: No acute cardiopulmonary process is detected.
== END | disposition home or self-care (01) ==
LOC: EDSTATUS 09-21 11:03
PROVIDERS: ATTEND Internal Medicine
DX: R63.5 Abnormal weight gain (principal); J18.9 Pneumonia, unspecified organism; Z86.79 Personal history of other diseases of the circulatory system
CPT/HCPCS: 71010

== ENCOUNTER 2016-09-12 13:38 | Emergency (ER) | payer MEDICARE, MEDICAID ==
[2016-09-12 13:38] VITALS: BP 87/47
[2016-09-12] MEDS ORDERED: IV NORMAL SALINE 1000ML BAG 1,000 ML IV SCH (13:49)
[2016-09-12] MEDS ORDERED: methylPREDNISolone SOD SUCC PF 125 MG/2 ML VIAL. IV ONE (14:00)
[2016-09-12] MEDS ORDERED: IPRATRPIUM/ALBUTEROL 0.5/2.5MG 3 ML NEBU. NEB ONE (14:00)
[2016-09-12 14:27] LABS: BASO # 0.4 x10^3/uL (0.0-0.2); BASO % 1 % (0-3); EOS % 0 % (0-3); HEMATOCRIT 44.3 % (36.0-47.0); LYMPH # 2.8 x10^3/uL (1.0-4.8); LYMPH % 4 % (24-48); MEAN CORPUSCULAR HEMOGLOBIN 28 pg (25-35); MEAN CORPUSCULAR HGB CONC 29 g/dL (31-37); MEAN CORPUSCULAR VOLUME 94 fL (79-100); MONO % 0 % (0-9); NEUT % 95 % (31-73); PLATELET COUNT 247 x10^3/uL (140-400); RED BLOOD COUNT 4.72 x10^6/uL (3.50-5.40); RED CELL DISTRIBUTION WIDTH 19.8 % (11.5-14.5)
[2016-09-12 14:55] LABS: WHITE BLOOD COUNT 78.3 x10^3/uL (4.0-11.0)
[2016-09-12 15:01] LABS: % EOS 1 % (0-5)
[2016-09-12 15:03] LABS: PLT ESTIMATE ADEQUATE (ADEQUATE)
[2016-09-12 15:11] LABS: BILIRUBIN,URINE SMALL (NEG); GLUCOSE,URINE NEGATIVE (NEG); NITRITE,URINE NEGATIVE (NEG); PROTEIN,URINE NEGATIVE (NEG-TRACE)
[2016-09-12 15:30] LABS: RBC,URINE 0 /HPF (0-2)
[2016-09-12 15:31] LABS: BACTERIA,URINE MOD /HPF (0-FEW); SQUAMOUS EPITHELIAL CELL,UR OCC /LPF; WBC,URINE OCC /HPF (0-4)
--- NOTE | 2016-09-12 15:32 | RAD ---
Portable chest, 2016: History: Shortness of breath Comparison is made to a study from 07/11/2016. The patient is rotated to the left. A left-sided transvenous pacemaker remains in place. The heart size and pulmonary vascularity are within normal limits. No pulmonary infiltrate is seen. There is no evidence of pleural fluid. There are multiple bilateral rib fractures. IMPRESSION: No acute cardiopulmonary abnormality is detected.
--- NOTE | 2016-09-12 15:48 | EKG ---
[facility] [address] [place] [address] Test Date: 2016-09-12 Test Time: 13:47:58 Pat Name: BIANCA PRIETO Department: Room: Gender: F Semi Conductor Assembler: : [id number] Requested By: BACILIO MARTINEZ Order Number: [id number] Reading MD: Sydney Simon Measurements Intervals [place] Rate: 70 P: MS: QRS: -47 QRSD: 96 T: 96 QT: 354 QTc: 385 Interpretive Statements ELECTRONIC PACEMAKER A PACED WITH NORMAL QRS CONDUCTION LEFT ANTERIOR FASCICULAR BLOCK QRS(T) CONTOUR ABNORMALITY CONSISTENT WITH ANTEROSEPTAL INFARCT PROBABLY OLD T ABNORMALITY IN HIGH LATERAL LEADS Electronically Signed On 09-15-2016 21:32:46 CDT by Sydney Simon
--- NOTE | 2016-09-12 19:24 | PHYS DOC ---
Past Medical History Past Medical History: Dementia, Hypertension, UTI, Other Additional Past Medical Histor: irr heartbeat, colon CA Past Surgical History: Cholecystectomy, Tonsillectomy, Other Additional Past Surgical Histo: colon resection, pacemaker Alcohol Use: None Drug Use: None Adult General Chief Complaint Chief Complaint: SHORTNESS OF BREATH HPI HPI 81-year-old female with a DNR status end-stage COPD and dementia now brought in from her living arrangement in severe respiratory distress and altered mental status. Vision noncommunicative on arrival suspect possible hypercarbia. Family states she does have a DNR status and that they do not feel heroic measures would be consistent with the patient's wishes. Review of Systems Review of Systems Constitutional: Denies fever or chills [] Eyes: Denies change in visual acuity, redness, or eye pain [] HENT: Denies nasal congestion or sore throat [] Respiratory: Denies cough or shortness of breath [] Cardiovascular: No additional information not addressed in HPI [] GI: Denies abdominal pain, nausea, vomiting, bloody stools or diarrhea [] : Denies dysuria or hematuria [] Musculoskeletal: Denies back pain or joint pain [] Integument: Denies rash or skin lesions [] Neurologic: Denies headache, focal weakness or sensory changes [] Endocrine: Denies polyuria or polydipsia [] Current Medications Current Medications Current Medications Medications (Trade) Dose Ordered Sig/Romario Start Time Stop Time Status Last Admin Dose Admin Albuterol/ Ipratropium (Duoneb) 3 ml 1X ONCE 09/12/16 14:00 09/12/16 14:01 DC 09/12/16 14:58 3 ML Methylprednisolone Sodium Succinate (SOLU-Medrol 125MG VIAL) 125 mg 1X ONCE 09/12/16 14:00 09/12/16 14:01 DC Sodium Chloride 1,000 ml @ 100 mls/hr Q10H 09/12/16 13:49 09/12/16 19:26 DC Allergies Allergies Allergies Coded Allergies Type Severity Reaction Last Updated Verified No Known Drug Allergies 07/04/16 No Physical Exam Physical Exam Family ill appearing elderly cachectic female contractured unresponsive pupils minimally responsive bilaterally in severe respiratory distress with hypoxia. Constitutional: As above HENT: Normocephalic, atraumatic, bilateral external ears normal, this membrane Strine, no oral exudates, nose normal. [] Eyes: PERRLA, EOMI, conjunctiva normal, no discharge. [] Neck: Normal range of motion, no tenderness, supple, no stridor. [] Cardiovascular:Heart rate regular rhythm, no murmur [] Lungs & Thorax: Bilateral breath sounds clear to auscultation [] Abdomen: Bowel sounds normal, soft, no tenderness, no masses, no pulsatile masses. [] Skin: Warm, dry, no erythema, no rash. [] Back: No tenderness, no CVA tenderness. [] Extremities: No tenderness, no cyanosis, no clubbing, ROM intact, no edema. [] Neurologic: Unresponsive moves all extremities spontaneously, normal motor function, no focal deficits noted. [] Psychologic: Patient is unresponsive with minimally responsive pupils. [] Current Patient Data Vital Signs Vital Signs Date Time Temp Pulse Resp B/P (MAP) Pulse Ox O2 Delivery O2 Flow Rate FiO2 09/12/16 14:30 BiPAP/CPAP 09/12/16 13:38 97.8 69 32 87/47 (60) 95 15.0 97.8 Lab Values Laboratory Tests Test 09/12/16 14:17 09/12/16 14:45 White Blood Count 78.3 x10^3/uL (4.0-11.0) *H Red Blood Count 4.72 x10^6/uL (3.50-5.40) Hemoglobin 13.0 g/dL (12.0-15.5) Hematocrit 44.3 % (36.0-47.0) Mean Corpuscular Volume 94 fL (79-100) Mean Corpuscular Hemoglobin 28 pg (25-35) Mean Corpuscular Hemoglobin Concent 29 g/dL (31-37) L Red Cell Distribution Width 19.8 % (11.5-14.5) H Platelet Count 247 x10^3/uL (140-400) Neutrophils (%) (Auto) 95 % (31-73) H Lymphocytes (%) (Auto) 4 % (24-48) L Monocytes (%) (Auto) 0 % (0-9) Eosinophils (%) (Auto) 0 % (0-3) Basophils (%) (Auto) 1 % (0-3) Neutrophils # (Auto) 74.6 x10^3uL (1.8-7.7) H Lymphocytes # (Auto) 2.8 x10^3/uL (1.0-4.8) Monocytes # (Auto) 0.3 x10^3/uL (0.0-1.1) Eosinophils # (Auto) 0.2 x10^3/uL (0.0-0.7) Basophils # (Auto) 0.4 x10^3/uL (0.0-0.2) H Segmented Neutrophils % 45 % (35-66) Band Neutrophils % 41 % (0-9) H Lymphocytes % 2 % (24-48) L Eosinophils % 1 % (0-5) Metamyelocytes % 4 % (0-0) H Myelocytes % 7 % (0-0) H Platelet Estimate Adequate (ADEQUATE) Urine Color Karishma Urine Clarity Cloudy Urine pH 5.0 Urine Specific Pooler 1.015 Urine Protein Negative mg/dL (NEG-TRACE) Urine Glucose (UA) Negative mg/dL (NEG) Urine Ketones (Stick) Negative mg/dL (NEG) Urine Blood Moderate (NEG) Urine Nitrite Negative (NEG) Urine Bilirubin Small (NEG) Urine Urobilinogen Dipstick 1.0 mg/dL (0.2 mg/dL) Urine Leukocyte Esterase Moderate (NEG) Urine RBC 0 /HPF (0-2) Urine WBC Occ /HPF (0-4) Urine Squamous Epithelial Cells Occ /LPF Urine Amorphous Sediment Present /HPF Urine Bacteria Mod /HPF (0-FEW) Urine Mucus Mod /LPF Laboratory Tests 09/12/16 14:17 EKG EKG EKG with paced rhythm at 76 left axis deviation STEMI [] Radiology/Procedures Radiology/Procedures [] Course & Med Decision Making Course & Med Decision Making Pertinent Labs and Imaging studies reviewed. (See chart for details) Signs and symptoms consistent with patient in respiratory failure. She has a DNR status and discuss with family we will certainly respect that for ventilation applied her maximum assistance and keeping the patient comfortable. patient's pupils are minimally responsive bilaterally she is unable to follow commands. Discuss with family and they're aware critical nature of her illness and limits this is most likely to be a terminal event. Patient supported with fluids oxygen and positive pressure ventilation. Medical assessment and treatment continued until the family is Government Auditor came and administered lacerates. Family was then comfortable discontinuing the positive pressure ventilation and a short time thereafter the patient with family at bedside. critical care 38 mins [] Dragon Disclaimer Dragon Disclaimer This electronic medical record was generated, in whole or in part, using a voice recognition dictation system. Departure Departure Impression: Primary Impression: Acute respiratory failure Additional Impression: due to respiratory arrest Disposition: 20 Condition: Referrals: RAVEN SINGH MD (PCP) Problem Qualifiers BACILIO MARTINEZ MD Sep 12, 2016 19:24
== END 2016-09-12 18:30 | disposition expired ==
LOC: ER 13:38
DX: J96.01 Acute respiratory failure with hypoxia (principal); R09.2 Respiratory arrest; F03.90 Unspecified dementia, unspecified severity, without behavioral disturbance, psychotic disturbance, mood disturbance, and anxiety; I10 Essential (primary) hypertension; J44.9 Chronic obstructive pulmonary disease, unspecified; Z66 Do not resuscitate; Z95.0 Presence of cardiac pacemaker; Z90.49 Acquired absence of other specified parts of digestive tract
CPT/HCPCS: 36415; 51702; 71010; 81001; 85007; 85027; 93005; 94640; 94660; 99291; J7620; 99285-25